=== PATIENT | male | born 1955 | race Caucasian/White ===

== ENCOUNTER 2018-09-17 08:20 | Emergency (ER) | payer BC ==
[2018-09-17 08:27] VITALS: BP 167/91
--- NOTE | 2018-09-17 08:40 | UC ---
Minor Trauma HPI - HPI Summary HPI Summary: 63-year-old male presents stating just prior to arrival he was splitting wood when a piece of the wood popped out of the wood splitter striking him in the left eye. Patient believes that he did briefly lose consciousness. Does not recall the events immediately after the incident. States that he did not fall to the ground. Complains of facial pain and swelling at site of injury. Patient states that he was wearing eyeglasses at the time and that he did take a large piece of glass out of his eye afterwards. He is unsure if he is experiencing blurred vision as his eyesight is poor without his glasses at baseline however denies any FB sensation, double vision or photophobia. He does complain of pain in the eye and tearing. Patient states that he is taking a blood thinner although he does not recall the name. Denies headache, neck pain, dizziness, lightheadedness, slurred or difficulty speaking, numbness, weakness, or tingling in the extremities, or any other injury. - History of Current Complaint Chief Complaint: UCHeadInjury Stated Complaint: LEFT EYE INJURY/LACERATION Time Seen by Provider: 09/17/18 08:24 Hx Obtained From: Patient Pain Intensity: 7 - Allergies/Home Medications Allergies/Adverse Reactions: Allergies Allergy/AdvReac Type Severity Reaction Status Date / Time No Known Allergies Allergy Verified 09/17/18 08:24 Home Medications: Home Medications Aspirin EC TAB* [Ecotrin EC Low Dose 81 MG*] 81 mg PO DAILY 09/17/18 [History Confirmed 09/17/18] Atorvastatin* [Lipitor*] 20 mg PO DAILY 09/17/18 [History Confirmed 09/17/18] Blood Thinner 1 tab PO DAILY 09/17/18 [History Confirmed 09/17/18] Carvedilol TAB* [Coreg TAB*] 3.125 mg PO BID 09/17/18 [History Confirmed ] Lisinopril TAB* [Prinivil TAB*] 10 mg PO DAILY 09/17/18 [History Confirmed 09/17] PMH/Surg Hx/FS Hx/Imm Hx Endocrine History: Dyslipidemia Cardiovascular History: Cardiac Disease, Hypertension - Surgical History Surgical History: Yes Other Surgical History: coronary stent - Family History Known Family History: Positive: Non-Contributory - Social History Occupation: Employed Full-time Lives: With Family Alcohol Use: None Substance Use Type: None Smoking Status (MU): Never Smoked Tobacco Review of Systems All Other Systems Reviewed And Are Negative: Yes Constitutional: Negative: Fever, Chills Skin: Positive: Bruising, Other - Abrasion Eyes: Positive: Blurred Vision, Eye Redness, Other - Left eye tearing and pain. Negative: Diplopia, Photophobia ENT: Negative: Epistaxis Respiratory: Negative: Shortness Of Breath Cardiovascular: Negative: Palpitations, Chest Pain Gastrointestinal: Negative: Abdominal Pain, Vomiting, Diarrhea, Nausea Genitourinary: Positive: Negative Motor: Negative: Weakness Neurovascular: Negative: Decreased Sensation Musculoskeletal: Negative: Other: - neck pain Neurological: Negative: Headache, Weakness, Paresthesia, Numbness Is Patient Immunocompromised?: No Physical Exam - Summary Physical Exam Summary: GENERAL APPEARANCE: Well developed, well nourished, alert and cooperative, and appears to be in no acute distress. HEAD: Suborbital ecchymosis and edema left eye with a central superficial abrasion. Tenderness to the zygomatic arch without crepitus. EYES: Right eye normal. Left conjuctival erythema with tearing. No FB noted. PERRL, EOM intact. Vision is grossly intact. EARS: External auditory canals and tympanic membranes clear, hearing grossly intact. NOSE: No nasal discharge. THROAT: Pharynx normal. No tonsilar inflammation, swelling, exudate, or lesions. Uvula midline. No TMJ tenderness. NECK: Neck supple, non-tender. CARDIAC: Normal S1 and S2. No S3, S4 or murmurs. Rhythm is regular. There is no peripheral edema, cyanosis or pallor. Extremities are warm and well perfused. Capillary refill is less than 2 seconds. Peripheral pulses intact. LUNGS: Clear to auscultation without rales, rhonchi, wheezing or diminished breath sounds. ABDOMEN: Positive bowel sounds. Soft, nondistended, nontender. No guarding or rebound. No masses or hepatosplenomegally. MUSKULOSKELETAL: ROM intact to all extremities. No joint erythema or tenderness. Normal muscular development. Normal gait. NEUROLOGICAL: CN II-XII intact. Strength and sensation symmetric and intact throughout. Reflexes 2+ throughout. SKIN: Skin normal color, texture and turgor. Triage Information Reviewed: Yes Vital Signs: Initial Vital Signs Temp 98.1 F 09/17/18 08:22 Pulse 79 09/17/18 08:22 Resp 18 09/17/18 08:22 BP 167/91 09/17/18 08:22 Pulse Ox 99 09/17/18 08:22 Vital Signs Reviewed: Yes Images Head: 1 - Edema and ecchymosis 2 - Superficial abrasion Minor Trauma Course/Dx - Course Course Of Treatment: 63-year-old male presents stating just prior to arrival he was splitting wood when a piece of the wood popped out of the wood splitter striking him in the left eye. Patient believes that he did briefly lose consciousness. Does not recall the events immediately after the incident. States that he did not fall to the ground. Complains of facial pain and swelling at site of injury. Patient states that he was wearing eyeglasses at the time and that he did take a large piece of glass out of his eye afterwards. He is unsure if he is experiencing blurred vision as his eyesight is poor without his glasses at baseline however denies any FB sensation, double vision or photophobia. He does complain of pain in the eye and tearing. Patient states that he is taking a blood thinner although he does not recall the name. Denies headache, neck pain, dizziness, lightheadedness, slurred or difficulty speaking, numbness, weakness, or tingling in the extremities, or any other injury. Afebrile. Hypertensive otherwise vital signs stable. Patient was neurologically intact. He had left conjunctival erythema with tearing but no foreign body was noted. Moderate suborbital edema and ecchymosis with a central superficial abrasion. PERRL. Extraocular eye movements were intact however patient did report pain with movement. Based on the mechanism of injury, his report of possible loss of consciousness, and his history of anticoagulant use recommending that he be evaluated in the emergency room at this time. Patient is agreeable to this and is electing to transport via private vehicle with his son driving. - Differential Dx/Diagnosis Differential Diagnosis/HQI/PQRI: Abrasion(s), Contusion(s), Fracture, Hematoma(s ), Other - head injury, intracranial bleed, corneal abrasion, eye FB Provider Diagnosis: Head injury due to trauma Discharge - Sign-Out/Discharge Documenting (check all that apply): Patient Departure All imaging exams completed and their final reports reviewed: No Studies - Discharge Plan Condition: Stable Disposition: HOME-RECOMMEND TO ED Referrals: No Primary Care Phys,NOPCP [Primary Care Provider] - Additional Instructions: Due to the mechanism of injury and your history, I am recommending that you be evaluated in the emergency room at this time. Go directly to the emergency room from here. Do not eat of drink anything until you have been evaluated. - Billing Disposition and Condition Condition: STABLE Disposition: Home-Recommend to ED
== END 2018-09-17 08:47 | disposition home health service (06) ==
LOC: UCCORT 08:20
DX: S06.9X1A Unspecified intracranial injury with loss of consciousness of 30 minutes or less, initial encounter (principal); W22.8XXA Striking against or struck by other objects, initial encounter; Y93.89 Activity, other specified; Y92.9 Unspecified place or not applicable; Z79.01 Long term (current) use of anticoagulants; E78.5 Hyperlipidemia, unspecified; I11.9 Hypertensive heart disease without heart failure
CPT/HCPCS: 99202; G0463